=== PATIENT | female | born 1970 | race Two or more races ===

== ENCOUNTER 2024-04-03 13:47 | Emergency (ER) | payer OTHER ==
[2024-04-03 13:53] VITALS: BP 126/75; PULSE 75; RESP 20; TEMP 97.8; BMI 45.3
[2024-04-03] MEDS ORDERED: KETOROLAC TROMETHAMINE 30 MG/1 ML VIAL ONE (14:27)
[2024-04-03] MEDS: KETOROLAC TROMETHAMINE 30 MG/1 ML VIAL IM ONE (14:32)
== END 2024-04-03 16:37 | disposition home or self-care (01) ==
LOC: JERFT 13:47
PROC: 3E0133Z Introduction of Anti-inflammatory into Subcutaneous Tissue, Percutaneous Approach (ICD-10-PCS; principal; 2024-04-03)
DX: S93.401A Sprain of unspecified ligament of right ankle, initial encounter (principal); S50.311A Abrasion of right elbow, initial encounter; M25.512 Pain in left shoulder; W01.0XXA Fall on same level from slipping, tripping and stumbling without subsequent striking against object, initial encounter; X50.1XXA Overexertion from prolonged static or awkward postures, initial encounter
CPT/HCPCS: 73030-TC-LT-FY; 73070-TC-LT-FY; 73070-TC-RT-FY; 73610-TC-RT-FY; 73630-TC-RT-FY; 99284-25